=== PATIENT | female | born 1930 | race Caucasian/White ===

== ENCOUNTER 2017-08-23 11:39 | Inpatient (IN) | payer MEDICARE ==
[2017-08-23] MEDS ORDERED: Diltiazem 125 MG/25 ML ONE (12:02)
[2017-08-23] MEDS ORDERED: Nitroglycerin 2% Ointment 1 INCH/1 GM Packet ONE (12:02)
[2017-08-23 12:04] LABS: #Basophils 0.1 thou/uL (0.0-0.2); #Eosinphils 0.1 thou/uL (0.0-0.7); #Lymphocytes 1.6 thou/uL (1.20-3.40); #Monocytes 0.7 thou/uL (0.11-0.59); #Neutrophils 5.6 thou/uL (1.40-6.50); %Basophils 1.1 % (0.0-1.0); %Eosinophils 1.7 % (0.0-10.0); %Lymphocytes 19.4 % (21.0-51.0); %Monocytes 8.3 % (0.0-10.0); %Neutrophils 69.5 % (42.0-75.0); Hemoglobin 14.1 g/dL (12.0-16.0); Mean Corpuscular HGB CONC 32.7 g/dL (32.0-36.0); Mean Corpuscular Hemoglobin 28.5 pg (27.0-31.0); Mean Corpuscular Volume 87.3 fl (81.0-99.0); Mean Platelet Volume 9.1 fL (7.4-10.4); Platelet Count 203 thou/uL (130-400); RBC Distribution Width 13.7 % (11.5-14.5); Red Blood Cell (RBC) Count 4.93 mill/uL (4.20-5.40); White Blood Cell (WBC) Count 8.1 thou/uL (4.8-10.8)
[2017-08-23] MEDS ORDERED: Sodium Chloride 0.9% 100 ML ONE (12:07)
[2017-08-23 12:18] LABS: ALT (SGPT) 31 U/L (8-55); AST (SGOT) 34 U/L (5-34); Albumin 4.2 g/dL (3.4-4.8); Alkaline Phosphatase 109 U/L (40-150); Anion Gap 15 mmol/L (10-20); BUN (Urea Nitrogen) 23 mg/dL (9.8-20.1); Bilirubin, Total 0.8 mg/dL (0.2-1.2); CK (CPK) 92 U/L (29-168); Calc. Creatinine Clearance 0 mL/min (70-130); Calcium 9.9 mg/dL (7.8-10.44); Carbon Dioxide 27 mmol/L (23-31); Chloride 103 mmol/L (98-107); Estimated GFR-MDRD 41; Globulin 3.9 g/dL (2.4-3.5); Glucose 115 mg/dL (83-110); Lipase 25 U/L (8-78); Potassium 4.7 mmol/L (3.5-5.1); Protein, Total 8.1 g/dL (6.0-8.3); Sodium 140 mmol/L (136-145)
[2017-08-23 12:25] LABS: CKMB 2.7 ng/mL (0-6.6); Troponin I 0.046 ng/mL (< 0.028)
--- NOTE | 2017-08-23 12:45 | RAD ---
CHEST ONE VIEW: History: Chest pain since last week, intermittent. Comparison: None. FINDINGS: One view chest. There are sternotomy wires and mediastinal clips. Normal cardiac silhouette. The pulm onary vessels and hilum are normal. Costophrenic angles are clear. There is hyperinflation with chron ic changes. No consolidation or mass. No pneumothorax. There is diffuse bone demineralization. Chroni c changes of the proximal right humerus. There appears to be thickening of the left apical pleura, li julieth chronic. IMPRESSION: No acute cardiopulmonary process. POS: [facility]
[2017-08-23 15:16] LABS: Troponin I 0.035 ng/mL (< 0.028)
[2017-08-23 15:45] VITALS: BMI 25.4
[2017-08-23] MEDS ORDERED: Aspirin 81 mg Enteric Coated Tablet PO SCH (16:00)
[2017-08-23] MEDS ORDERED: Diltiazem HCl 125 MG, Admixture Fee 1 EACH in Sodium Chloride 0.9% 100 ML IVPB SCH ×3 (16:00→16:45)
[2017-08-23] MEDS ORDERED: Dextrose 5% in Water 1,000 ML IV PRN (16:27)
[2017-08-23] MEDS ORDERED: Dextrose 50% Abboject 50 ML SYRINGE IVP PRN (16:27)
[2017-08-23] MEDS ORDERED: Insulin Regular 300 UNITS/3 ML VIAL SC PRN ×2 (16:27)
[2017-08-23] MEDS ORDERED: Nitroglycerin 2% Ointment 1 INCH/1 GM Packet TOP SCH (18:00)
[2017-08-23 18:28] LABS: Troponin I 0.029 ng/mL (< 0.028)
[2017-08-23] MEDS ORDERED: Enoxaparin Sodium 60 MG/0.6 ML SYRINGE SC SCH (19:00)
[2017-08-23] MEDS: Carvedilol 6.25 MG TAB PO SCH (20:28)
[2017-08-23] MEDS: Zolpidem Tartrate 5 MG TAB PO SCH (20:28)
[2017-08-23] MEDS: Atorvastatin Calcium 40 MG TAB PO SCH (20:28)
--- NOTE | 2017-08-24 00:32 | CON ---
DATE OF CONSULTATION: 08/23/2017 PRIMARY THERAPY TECHNICIAN: Dean Hill MD REASON FOR CONSULTATION: Atrial fibrillation with rapid rate, chest pressure, and pulmonary congesti on. HISTORY OF PRESENT ILLNESS: Ms. Shah is a very pleasant 87-year-old woman. The patient states she has been having tightness in her chest now for a couple of weeks. It is worse when she exerts herse lf. She also feels progressively more short of breath and had more swelling of her lower extremities . She came here to the emergency room, she was found to be in atrial fibrillation with an increased ventricular response about 110 beats per minute. She has been hospitalized and is feeling better now . MEDICATIONS AT HOME: 1. Lisinopril/hydrochlorothiazide 20/25. 2. Aspirin. 3. Carvedilol 6.25 mg twice a day. 4. Atorvastatin 40 mg a day. 5. Paroxetine. She received nitroglycerin paste and Cardizem here. ALLERGIES: None known. PREVIOUS HISTORY: The patient underwent stress testing and subsequent coronary artery bypass graftin g in 2006. Dr. Villasenor did a bypass surgery, MCCAULEY to the LAD, vein graft to the ramus and circumflex. She also had a carotid endarterectomy with patch angioplasty. The patient has done well up until recently. REVIEW OF SYSTEMS: Constitutional: No significant weight gain or loss. Vision: No changes. Heari ng: No changes. Pulmonary: No cough or wheezing. Gastrointestinal: No nausea, vomiting, diarrhea . Skin: No rashes. Neurologic: No unilateral weakness or numbness. Psychiatric: No unusual depr ession or anxiety. Hematologic: No unusual bruising. Genitourinary: No burning with urination. PHYSICAL EXAMINATION: GENERAL: A pleasant elderly woman. She is alert and oriented and asymptomatic. VITAL SIGNS: Her blood pressure 166/77, pulse 86, it is irregular. HEENT: Sclerae nonicteric. Mouth mucous membranes moist. NECK: Supple. No lymphadenopathy. LUNGS: Clear. No wheezing, rales, or rhonchi. CARDIAC: Irregularly irregular. No murmur, rub, or gallop. ABDOMEN: Soft, nontender. EXTREMITIES: No clubbing, cyanosis, or edema. Palpable dorsalis pedis pulse on the right. Diminish ed dorsalis pedis pulse on the left. LABORATORY AND X-RAY FINDINGS: EKG atrial fibrillation, now with controlled ventricular response, pr eviously rate was fast at 110 beats per minute. Creatinine 1.24. Potassium is 4.7. BNP 497.8. ASSESSMENT: 1. Atrial fibrillation, newly diagnosed with a rapid ventricular response. 2. Previous bypass surgery. 3. Probably got some element of diastolic congestive heart failure. 4. Renal insufficiency, stage 3. PLAN: 1. Continue SHAAN inhibitors. 2. Continue carvedilol. 3. We will give her an extra dose of furosemide tomorrow morning early. She is probably somewhat vo lume overloaded. 4. Echocardiogram to be done. 5. Single dose of Lovenox to be done. 6. Dr. Hill will return tomorrow to decide whether to undergo stress testing versus repeat card iac catheterization.
[2017-08-24] MEDS ORDERED: Furosemide 20 MG/2 ML VIAL SLOW IVP SCH (06:00)
[2017-08-24] MEDS: Lisinopril 5 MG TAB PO SCH (08:01)
[2017-08-24] MEDS: PARoxetine 20 MG TAB PO SCH (08:01)
[2017-08-24] MEDS: metFORMIN 500 MG TAB PO SCH (08:01)
[2017-08-24] MEDS: Carvedilol 6.25 MG TAB PO SCH ×2 (08:02→21:46)
[2017-08-24 08:44] LABS: #Eosinphils 0.1 thou/uL (0.0-0.7); #Monocytes 0.8 thou/uL (0.11-0.59); #Neutrophils 5.9 thou/uL (1.40-6.50); %Basophils 0.5 % (0.0-1.0); %Eosinophils 1.3 % (0.0-10.0); %Lymphocytes 22.3 % (21.0-51.0); %Monocytes 9.3 % (0.0-10.0); %Neutrophils 66.6 % (42.0-75.0); Mean Corpuscular HGB CONC 32.6 g/dL (32.0-36.0); Mean Corpuscular Hemoglobin 29.2 pg (27.0-31.0); Mean Corpuscular Volume 89.6 fl (81.0-99.0); Mean Platelet Volume 8.4 fL (7.4-10.4); Platelet Count 190 thou/uL (130-400); RBC Distribution Width 13.2 % (11.5-14.5); Red Blood Cell (RBC) Count 4.46 mill/uL (4.20-5.40); White Blood Cell (WBC) Count 8.9 thou/uL (4.8-10.8)
[2017-08-24] MEDS ORDERED: Lisinopril/Hydrochlorothiazide 20/25 mg Tablet PO SCH (09:00)
[2017-08-24] MEDS ORDERED: Aspirin 325 MG TAB PO SCH (09:00)
[2017-08-24 09:03] LABS: Anion Gap 12 mmol/L (10-20); BUN (Urea Nitrogen) 29 mg/dL (9.8-20.1); Calc. Creatinine Clearance 33 mL/min (70-130); Calcium 9.4 mg/dL (7.8-10.44); Carbon Dioxide 26 mmol/L (23-31); Chloride 102 mmol/L (98-107); Estimated GFR-MDRD 38; Glucose 124 mg/dL (83-110); Potassium 4.1 mmol/L (3.5-5.1); Sodium 136 mmol/L (136-145)
--- NOTE | 2017-08-24 18:03 | PDOC.CTH ---
Cardiology Progress Note - Subjective Patient without complaint. Still in AFib and rate down to 50s earlier so gtt stopped. Rate still controlled. - Objective Vital Signs Temp Pulse Resp BP Pulse Ox 08/24/17 16:04 98.4 F 76 17 121/56 L 95 08/24/17 12:51 97.5 F L 83 16 97 08/23/17 08/24/17 08/25/17 06:59 06:59 06:59 Intake Total 960 Output Total 1000 Balance -40 - Physical Examination General/Neuro: alert & oriented x3, NAD Lungs: CTA Heart: other: (IRR) Abdomen: NT/ND - Telemetry Telemetry Rhythm: Afib - Labs Result Diagrams: 08/24/17 08:25 08/24/17 08:25 Troponin/CKMB CK-MB (CK-2) 2.7 ng/mL (0-6.6) 08/23/17 11:50 Troponin I 0.029 ng/mL (< 0.028) H 08/23/17 17:53 - Assessment/Plan 1. New-onset Afib with RVR - rate-controlled currently. Unknown AF duration. On Coreg and received Lovenox today. Discussed NOAC and [id number] score. She wants to speak with daughters first, but is leaning towards NOAC. May require MPI, but can do as outpatient. ECHO still pending. Possible discharge tomorrow. 2. Acute diastolic CHF - appears euvolemic now. ECHO tomorrow.
[2017-08-24] MEDS: Zolpidem Tartrate 5 MG TAB PO SCH (21:46)
[2017-08-24] MEDS: Atorvastatin Calcium 40 MG TAB PO SCH (21:46)
[2017-08-25 07:54] LABS: Anion Gap 13 mmol/L (10-20); BUN (Urea Nitrogen) 32 mg/dL (9.8-20.1); Calc. Creatinine Clearance 35 mL/min (70-130); Calcium 9.5 mg/dL (7.8-10.44); Carbon Dioxide 24 mmol/L (23-31); Chloride 102 mmol/L (98-107); Estimated GFR-MDRD 41; Glucose 102 mg/dL (83-110); Potassium 4.1 mmol/L (3.5-5.1); Sodium 135 mmol/L (136-145)
[2017-08-25 07:56] LABS: #Basophils 0.1 thou/uL (0.0-0.2); #Eosinphils 0.1 thou/uL (0.0-0.7); #Lymphocytes 1.3 thou/uL (1.20-3.40); #Monocytes 0.7 thou/uL (0.11-0.59); #Neutrophils 4.2 thou/uL (1.40-6.50); %Basophils 0.9 % (0.0-1.0); %Lymphocytes 20.1 % (21.0-51.0); %Monocytes 10.6 % (0.0-10.0); %Neutrophils 66.3 % (42.0-75.0); Hemoglobin 13.3 g/dL (12.0-16.0); Mean Corpuscular HGB CONC 32.6 g/dL (32.0-36.0); Mean Corpuscular Hemoglobin 29.4 pg (27.0-31.0); Mean Corpuscular Volume 90.2 fl (81.0-99.0); Mean Platelet Volume 9.1 fL (7.4-10.4); Platelet Count 196 thou/uL (130-400); RBC Distribution Width 12.9 % (11.5-14.5); Red Blood Cell (RBC) Count 4.54 mill/uL (4.20-5.40); White Blood Cell (WBC) Count 6.4 thou/uL (4.8-10.8)
--- NOTE | 2017-08-25 08:28 | PRG ---
DATE OF SERVICE: 08/25/1017 The patient had a good night. Her daughter is at bedside. She denies any problems. PHYSICAL EXAMINATION: GENERAL: She is awake, alert, and oriented to person, place and time. VITAL SIGNS: Her blood pressure is 127/60, pulse 80, respiration rate 18. She is afebrile. NECK: Supple. No JVD or carotid bruit. Carotids had good upstroke, no thyromegaly. COR: Irregularly irregular with variable first and second heart sounds. No S3 or S4. CHEST: Symmetrical. Clear to auscultation and percussion. ABDOMEN: Soft, nontender, normal bowel sounds. No bruit or organomegaly. EXTREMITIES: No edema or cyanosis. Pedal pulses. SKIN: There is no evidence of ulcers, lesion or rash. NEUROLOGIC: She is awake, alert, and oriented to person, place, and time. ASSESSMENT: 1. Atrial fibrillation with rapid ventricular response. 2. Anxiety disorder. 3. Hypertension. 4. Acute diastolic congestive heart failure, improved. PLAN: We are waiting for the echocardiogram and hopefully the patient will be able to go home in the next 24 hours. The patient verbalized understanding. All questions answered to her satisfaction.
[2017-08-25] MEDS: metFORMIN 500 MG TAB PO SCH (09:07)
[2017-08-25] MEDS: Lisinopril 5 MG TAB PO SCH (09:08)
[2017-08-25] MEDS: Apixaban 5 MG TAB PO SCH ×2 (09:08→19:19)
[2017-08-25] MEDS: Carvedilol 6.25 MG TAB PO SCH (09:08)
[2017-08-25] MEDS: PARoxetine 20 MG TAB PO SCH (09:08)
--- NOTE | 2017-08-25 11:52 | PQF ---
DATE: 08-25-17 ATTN: DR. CAMILLE MUHAMMAD Please exercise your independent, professional judgment in responding to the clarification form. Clinical indicators are provided on the bottom of this form for your review Please check appropriate box(s): [ ] Demand Ischemia [ ] AMI Type II [ ] Other diagnosis [ x ] Unable to determine In addition, please specify: Present on Admission (POA): [ x ] Yes [ ] No [ ] Unable to determine CLINICAL INDICATORS - SIGNS / SYMPTOMS / LABS TROPONIN: 08-23-17: 0.046, 0.[address] CURRY 08-23-17: HX OF STRESS TESTING AND SUBSEQUENT CORONARY ARTERY BYPASS GRAFTING IN 2006. DR. PARTIDA DID A BYPASS SURGERY, MCCAULEY TO LAD, VEIN GRAFT TO THE RAMUS AND CIRCUMFLEX. SHE ALSO HAD A CAROTID ENDARTERECTOMY WITH PATCH ANGIOPLASTY. RISKS: CONSULT NOTE DR. CURRY 08-23-17: HX OF STRESS TESTING AND SUBSEQUENT CORONARY ARTERY BYPASS GRAFTING IN 2006. DR. PARTIDA DID A BYPASS SURGERY, MCCAULEY TO LAD, VEIN GRAFT TO THE RAMUS AND CIRCUMFLEX. SHE ALSO HAD A CAROTID ENDARTERECTOMY WITH PATCH ANGIOPLASTY. (ER) HX OF HLD, HTN, CABG TREATMENTS: CONSULT DR. PARTIDA 08-23-17: SHE RECEIVED NITROGLYCERIN AND CARDIZEM HERE, ECHO TO BE DONE, LOVENOX CONTINUOUS CARDIAC MONITORING (This form is maintained as a part of the permanent medical record) 2014 [employer], [employer]. All Rights Reserved CRISTOFER [email or web address] Office: [phone] [facility]
--- NOTE | 2017-08-25 12:13 | PQF ---
DATE: 08-25-17 ATTN: DR. CAMILLE MUHAMMAD Please exercise your independent, professional judgment in responding to the clarification form. Clinical indicators are provided on the bottom of this form for your review Please check appropriate box(s): [ ] Acute Renal Failure (ARF) / Acute Kidney Injury (ALFRED) [ ] Acute on Chronic Renal Failure please specify Stage of CKD (see below) [ x ] CKD without ARF/ALFRED please specify Stage of CKD__3 [ ] Other diagnosis [ ] Unable to determine In addition, please specify: Present on Admission (POA): [ x ] Yes [ ] No [ ] Unable to determine National Kidney Foundation Guidelines for CKD Staging Stage I Kidney damage with normal or increased GFR GFR > 90 Stage IIKidney damage with mildly decreased GFR GFR 60-89 Stage III Kidney damage with moderately decreased GFR GFR 30-59 Stage IVKidney damage with severely decreased GFR GFR 16-29 Stage VKidney failure GFR<15 ESRDEnd Stage Renal Disease On dialysis Acute Renal Failure/Acute Kidney Failure defined as: Increases in SCr by (>) 0.3 mg/dl within 48 hours OR- Increases in SCr by (>) 1.5 times baseline, known or presumed to have occurred within the prior 7 days OR- Urine volume < 0.5 ml/kg/hour for 6 hours (KDIGO supplement 2012 for RIFLE/MARIA LUZ criteria) For continuity of documentation, please document condition throughout progress notes and discharge summary. Thank You. CLINICAL INDICATORS - SIGNS / SYMPTOMS / LABS GFR: 08-23-17: 41 08-24-17 38 08-25-17: 41 CREATININE: 08-23-17: 1.24 08-24-17: 1.33 08-25-17: 1.23 BUN: 08-23-17: 23 08-24-17: 29 08-25-17: [address] CURRY 08-23-17: ASSESSMENT: RENAL INSUFFICIENCY, STAGE 3 RISK FACTORS: CONSULT DR. CURRY 08-23-17: ASSESSMENT: RENAL INSUFFICIENCY, STAGE 3, CONTINUE SHAAN INHIBITORS TREATMENTS: LABS MONITORING (This form is maintained as a part of the permanent medical record) 2014 [employer], [employer]. All Rights Reserved CRISTOFER [email or web address] Office: [phone] [facility]
--- NOTE | 2017-08-25 15:16 | PRG ---
DATE OF SERVICE: 08/25/2017 SUBJECTIVE: Ms. Shah is doing well. She continues to be in atrial fibrillation, but appears to be rate controlled. CURRENT MEDICATIONS: Include Eliquis 5 mg b.i.d., aspirin 81 q.a.m., atorvastatin and carvedilol 6.2 5 b.i.d. OBJECTIVE: VITAL SIGNS: Blood pressure 126/70, pulse 80, temperature 97.9. LUNGS: Clear to auscultation. CARDIAC: Irregularly irregular. ABDOMEN: Soft, nontender, nondistended. EXTREMITIES: No edema. IMPRESSION: Atrial fibrillation. RECOMMENDATIONS: Ms. Shah appears to be rate controlled. She is tolerating Eliquis in addition to Coreg. From my standpoint, it would be okay for discharge with close outpatient followup. Othermohits e, I have no recommendations.
[2017-08-25 16:05] VITALS: BP 126/79; TEMP 98.5
--- NOTE | 2017-08-26 14:23 | SS ---
SHORT STAY SUMMARY DATE OF INITIAL STAY IN THE HOSPITAL: 08/23/2017 DATE OF DISCHARGE: 08/25/2017 She came to the ER where Dr. Elizabeth saw her and did an H and P/consultation and also serves as the hi story and physical. Her chief complaint was feeling tired for several days and short of breath. He found her to be in atrial fibrillation with rapid ventricular response. She had chest pressure and p ulmonary congestion. He elected to put her on telemetry and continue her ACEs and carvedilol and gav e her some Lasix IV. Echocardiogram was performed. Lovenox given and Dr. Hill was assigned to take care of her thereafter. We were called in on the previous day to come and see her and on 2017, she was alert, no complaints, no chest pain. Vital signs are stable. Chest clear. Blood pres sure trend down good. She was still on atrial fibrillation with rapid ventricular response. Her tro ponins were slightly increased, but this was felt to be due to demand ischemia. The PA saw her on for Cardiology, no complaints, still in atrial fibrillation with the rate was down to the 50 s, so the Cardizem drip was stopped at this point. She remained in the hospital, rate controlled. T heurbano decided they did not want to use anticoagulation. We talked about coagulation therapy because lola kam is developing some dementia. Dr. Hill saw her on the day of discharge on 08/25/2017. She was tolerating the Eliquis without problems, so we will discharge her on Eliquis 5 b.i.d. and Coreg. Lola kam will follow up with Dr. Hill in his office. DIAGNOSES AT THE TIME OF DISCHARGE: Atrial fibrillation with rapid ventricular response, new onset. She also had acute diastolic congestive heart failure with secondary dyspnea. She has mild dementia and mild renal insufficiency stage 3. The time required to review the chart, examine the patient, day camp counselor the daughter and patient, answeri ng all their questions, reconcile all her medication then prepared the chart for discharge including dictation was 35 minutes. She is discharged in stable condition and will follow up with Dr. Gunter in 1 week. Prescriptions written that day were for the Eliquis 5 mg one b.i.d. and she will continue o n her Coreg at 6.25 mg b.i.d. as well.
--- NOTE | 2017-09-16 12:08 | EKG ---
Test Reason : Blood Pressure : / mmHG Vent. Rate : 110 BPM Atrial Rate : 119 BPM P-R Int : 000 ms QRS Dur : 078 ms QT Int : 312 ms P-R-T Axes : 000 066 154 degrees QTc Int : 422 ms Atrial fibrillation with rapid ventricular response Abnormal QRS-T angle, consider primary T wave abnormality Abnormal ECG Confirmed by JUNIOR BONDS ([id number]), book or script editor FREDERICK BYNUM ([id number]) on 09/16/2017 12:07:01 PM Referred By: Confirmed By:JUNIOR BONDS
--- NOTE | 2017-10-24 07:50 | DIS ---
SHORT STAY SUMMARY DATE OF INITIAL STAY IN THE HOSPITAL: 08/23/2017 DATE OF DISCHARGE: 08/25/2017 She came to the ER where Dr. Elizabeth saw her and did an H and P/consultation and also serves as the history and physical. Her chief complaint was feeling tired for several days and short of breath. He found her to be in atrial fibrillation with rapid ventricular response. She had chest pressure and pulmonary congestion. He elected to put her on telemetry and continue her ACEs and carvedilol and gave her some Lasix IV. Lovenox given and Dr. Hill was assigned to take care of her thereafter. We were called in on the previous day to come and see her and on 08/24/2017, she was alert, no complaints, no chest pain. Vital signs are stable. Chest clear. Blood pressure trend down good. She was still on atrial fibrillation with rapid ventricular response. Her troponins were slightly increased, but this was felt to be due to demand ischemia. The PA saw her on 08/24/2017 for Cardiology, no complaints, still in atrial fibrillation with the rate was down to the 50s, so the Cardizem drip was stopped at this point. She remained in the hospital, rate controlled. They decided they did not want to use anticoagulation. We talked about coagulation therapy because she is developing some dementia. Dr. Hill saw her on the day of discharge on 08/25/2017. She was tolerating the Eliquis without problems , so we will discharge her on Eliquis 5 b.i.d. and Coreg. She will follow up with Dr. Hill in his office. DIAGNOSES AT THE TIME OF DISCHARGE: Atrial fibrillation with rapid ventricular response, new onset. She also had acute diastolic congestive heart failure with secondary dyspnea. She has mild dementia and mild renal insufficiency stage 3. The time required to review the chart, examine the patient, dormitory counselor the daughter and patient, answering all their questions, reconcile all her medication then prepared the chart for discharge including dictation was 35 minutes. She is discharged in stable condition and will follow up with Dr. Gunter in 1 week. Prescriptions written that day were for the Eliquis 5 mg one b.i.d. and she will continue on her Coreg at 6.25 mg b.i.d. as well. MTDD
== END 2017-08-25 19:55 | disposition home or self-care (01) | DRG 308 ==
LOC: SCSER 11:39 → ERS 11:39 → 2NO 12:30 → OBSVTOIN 08-24 12:30
PROVIDERS: ADMIT Specialist; ATTEND Specialist
DX: I48.91 Unspecified atrial fibrillation (principal); I50.21 Acute systolic (congestive) heart failure; I24.8 Other forms of acute ischemic heart disease; N18.3 Chronic kidney disease, stage 3 (moderate); I13.0 Hypertensive heart and chronic kidney disease with heart failure and stage 1 through stage 4 chronic kidney disease, or unspecified chronic kidney disease; Z95.1 Presence of aortocoronary bypass graft; F41.9 Anxiety disorder, unspecified; E78.5 Hyperlipidemia, unspecified
CPT/HCPCS: 36415; 36416; 71045; 80048; 80053; 82553; 83690; 83880; 84484; 85025; 93005; 96365; 96366; J1650; J1940; J7050

== ENCOUNTER 2017-09-26 16:36 | Inpatient (IN) | payer MEDICARE ==
[2017-09-26 17:03] LABS: #Basophils 0.1 thou/uL (0.0-0.2); #Eosinphils 0.3 thou/uL (0.0-0.7); #Lymphocytes 1.5 thou/uL (1.20-3.40); #Monocytes 0.6 thou/uL (0.11-0.59); %Basophils 0.9 % (0.0-1.0); %Eosinophils 3.1 % (0.0-10.0); Mean Corpuscular HGB CONC 33.4 g/dL (32.0-36.0); Mean Corpuscular Hemoglobin 29.4 pg (27.0-31.0); Mean Corpuscular Volume 88.1 fl (81.0-99.0); Mean Platelet Volume 8.2 fL (7.4-10.4); Platelet Count 202 thou/uL (130-400); RBC Distribution Width 12.7 % (11.5-14.5); White Blood Cell (WBC) Count 8.4 thou/uL (4.8-10.8)
[2017-09-26 17:23] LABS: ALT (SGPT) 18 U/L (8-55); AST (SGOT) 22 U/L (5-34); Albumin 4.2 g/dL (3.4-4.8); Alkaline Phosphatase 78 U/L (40-150); Anion Gap 10 mmol/L (10-20); BUN (Urea Nitrogen) 57 mg/dL (9.8-20.1); Bilirubin, Total 0.6 mg/dL (0.2-1.2); CK (CPK) 87 U/L (29-168); Calc. Creatinine Clearance 0 mL/min (70-130); Calcium 9.8 mg/dL (7.8-10.44); Carbon Dioxide 32 mmol/L (23-31); Chloride 99 mmol/L (98-107); Estimated GFR-MDRD 33; Globulin 3.4 g/dL (2.4-3.5); Glucose 107 mg/dL (83-110); Potassium 3.6 mmol/L (3.5-5.1); Protein, Total 7.6 g/dL (6.0-8.3); Sodium 137 mmol/L (136-145)
[2017-09-26 17:27] LABS: CKMB 1.4 ng/mL (0-6.6); Troponin I Less than 0.010 ng/mL (< 0.028)
--- NOTE | 2017-09-26 18:13 | RAD ---
CHEST ONE VIEW: HISTORY: Chest pain. COMPARISON: Chest radiograph from 08/23/2017. FINDINGS: Heart size is mildly enlarged, similar. Calcified granulomas in the left lung. No focal air space c onsolidation, pneumothorax, or effusion. There are biapical pleural calcifications. Severe right and moderate left degenerative changes of th e glenohumeral joints. IMPRESSION: 1. Cardiomegaly and mild chronic changes. 2. No acute intrathoracic abnormality. POS: [facility]
[2017-09-26] MEDS ORDERED: Acetaminophen 325 MG TAB ONE (19:12)
[2017-09-26] MEDS ORDERED: Ondansetron ODT 4 MG TAB SL PRN (19:58)
[2017-09-26] MEDS ORDERED: Acetaminophen 325 MG TAB PO PRN ×2 (19:58→20:51)
[2017-09-26] MEDS ORDERED: Ondansetron HCl/PF 4 MG/2 ML Vial IVP PRN (19:58)
[2017-09-26] MEDS ORDERED: ALPRAZolam 1 MG TAB PO PRN (20:49)
[2017-09-26] MEDS ORDERED: Ondansetron ODT 4 MG TAB PO PRN (20:51)
[2017-09-26] MEDS ORDERED: Ondansetron HCl/PF 4 MG/2 ML Vial SLOW IVP PRN (20:51)
[2017-09-26] MEDS ORDERED: Nitroglycerin 0.4 MG TAB (25 Tab Bottle) SL PRN (20:52)
[2017-09-26] MEDS ORDERED: cloNIDine 0.1 MG TAB PO PRN (20:52)
[2017-09-26] MEDS ORDERED: Carvedilol 6.25 MG TAB PO SCH (21:00)
[2017-09-26] MEDS: Apixaban 5 MG TAB PO SCH (21:01)
[2017-09-26] MEDS: Carvedilol 6.25 MG TAB PO SCH (21:01)
[2017-09-26] MEDS: PARoxetine 20 MG TAB PO SCH (21:02)
[2017-09-26] MEDS: Atorvastatin Calcium 40 MG TAB PO SCH (21:02)
[2017-09-26] MEDS: Zolpidem Tartrate 5 MG TAB PO SCH (21:04)
[2017-09-26 21:08] LABS: Troponin I Less than 0.010 ng/mL (< 0.028)
[2017-09-26 21:31] VITALS: BMI 27.1
[2017-09-26 23:28] LABS: Troponin I 0.013 ng/mL (< 0.028)
[2017-09-27] MEDS ORDERED: metFORMIN 500 MG TAB PO SCH (08:00)
[2017-09-27] MEDS: Apixaban 5 MG TAB PO SCH (09:05)
[2017-09-27] MEDS: Furosemide 20 MG TAB PO SCH (09:05)
[2017-09-27] MEDS: Potassium Chloride 10 MEQ TAB PO SCH (09:06)
[2017-09-27] MEDS ORDERED: Communication Order-Pharmacy FS SCH (09:15)
[2017-09-27] MEDS: Carvedilol 6.25 MG TAB PO SCH ×2 (09:23→21:50)
[2017-09-27] MEDS: Lisinopril/Hydrochlorothiazide 20/25 mg Tablet PO SCH (09:29)
[2017-09-27] MEDS ORDERED: Dextrose 50% Abboject 50 ML SYRINGE IVP PRN (09:30)
[2017-09-27] MEDS ORDERED: Dextrose 5% in Water 1,000 ML IV PRN (09:30)
[2017-09-27] MEDS ORDERED: Insulin Regular 300 UNITS/3 ML VIAL SC PRN ×2 (09:30)
--- NOTE | 2017-09-27 10:17 | CON ---
DATE OF CONSULTATION: 09/27/2017 REASON FOR CONSULTATION: Chest pain, nausea, vomiting, and a recent abnormal stress study. HISTORY OF PRESENT ILLNESS: Ms. Shah is a very pleasant 87-year-old woman with a past history of a trial fibrillation, has been in the hospital over the last several months for atrial fibrillation wit h RVR. She was rate controlled. She underwent a noninvasive stress study recently and was found to have ischemia along the anterior and septal wall. She recently presented with acute onset chest pain lasting 2 hours. She had associated nausea, vomit ing, and shortness of breath. No other ameliorating, exacerbating, or precipitating factors present. PAST MEDICAL HISTORY: Hyperlipidemia, hypertension, diabetes mellitus, atrial fibrillation, systolic heart failure. CABG x3 with MCCAULEY to the LAD, vein graft to the ramus and circumflex artery. PAST SURGICAL HISTORY: Cholecystectomy. ALLERGIES: None. CURRENT MEDICATIONS: Alprazolam, aspirin, paroxetine, metformin, Eliquis, Xanax, lisinopril/hydrochl orothiazide, Lipitor, carvedilol. REVIEW OF SYSTEMS: Ten-point review of systems is reviewed and is as above, otherwise negative. PHYSICAL EXAMINATION: GENERAL: Patient is a pleasant female, who is in no acute distress. The patient appears her stated age. VITAL SIGNS: Blood pressure 117/52, pulse 81, temperature 98. NEUROLOGIC: The patient is alert and oriented times 3 with no focal neurologic deficits. HEENT: Sclerae without icterus. Mouth has moist mucous membranes with normal pallor. NECK: No JVD. Carotid upstroke brisk. No bruits bilaterally. LUNGS: Clear to auscultation with unlabored respirations. BACK: No scoliosis or kyphosis. HEART: Irregularly irregular. ABDOMEN: Soft, nontender, nondistended. No peritoneal signs present. No hepatosplenomegaly. No ab normal striae. EXTREMITIES: 2+ femoral and 2+ dorsalis pedis pulses. No cyanosis, clubbing, or edema. SKIN: No gross abnormalities. PERTINENT LABORATORY DATA: Creatinine 1.5 with a GFR of 33, CO2 of 32. BNP of 432. IMPRESSION: 1. Acute onset chest pain. 2. Abnormal stress test. 3. Coronary artery disease. 4. Status post bypass surgery. 5. Atrial fibrillation. RECOMMENDATIONS: Given that she is currently on Eliquis, we will have to defer angiography for the [facility] er 2 days. At this point, we would treat medically. We will add Jenniferx tomorrow. Unfortunately, s he will not be approachable from a radial standpoint given MCCAULEY. Her troponin has been negative. We will discuss with patient on whether she would like to proceed with angiography in the next 2 days o r treat medically and proceed as an outpatient. Based on the findings of her angio, we will not be a ble to proceed with cardioversion. I discussed the procedure in full detail with Ms. Shah. Risks included but not limited to the following. , stroke, ND, need for emergency surgery, loss of li mb, bleeding, and infection, as well as a reaction to the dye causing kidney failure and needing long -term dialysis. I also discussed the risks of PCI to include all of the above including coronary dis section and perforation in addition to acute stent thrombosis and restenosis. All questions about th e procedure were answered. Given the above, the patient agreed to proceed with coronary angiography a nd possible PCI.
--- NOTE | 2017-09-27 10:41 | HP ---
REASON FOR ADMISSION: Chest pain. HISTORY OF PRESENT ILLNESS: This is a pleasant 87-year-old female with a history of multiple medical problems to include hypertension, hyperlipidemia, and coronary artery bypass roughly 10 years ago. She was seen by Dr. Hill roughly 2 weeks ago where she had abnormal stress test and at that time , it was recommended that she needed a cardiac catheterization. Unfortunately, the patient woke up e rebecca yesterday morning with retrosternal chest tightness associated with shortness of breath, diaphor esis and nausea and vomiting. This lasted roughly 2 hours. Her family was called to the scene and davide lisa did contact Dr. Hill's office and he did advise her to come to the hospital. Now, she is pa in free and appears to be hemodynamically stable, in no acute distress. She denies any chest, arm or back pain. She also denies any syncopal or near syncopal episode. She is admitted for further eval uation and treatment. PAST MEDICAL HISTORY: 1. As above plus depression. 2. Anxiety. 3. Insomnia. 4. History of pancreatitis. PAST SURGICAL HISTORY: 1. History of coronary artery disease with bypass in the past. 2. Cholecystectomy. 3. Hysterectomy. 4. Breast biopsy. ALLERGIES: None. MEDICATIONS: 1. Lasix 40 mg every day. 2. Xanax 0.5 mg 2 tablets 3 times a day. 3. Paroxetine 40 mg daily. 4. Eliquis 5 mg every day. 5. Ambien 10 mg b.i.d. 6. Coreg 6.25 mg b.i.d. 7. Metformin 500 mg b.i.d. 8. Potassium 10 mEq daily. 9. Lipitor/hydrochlorothiazide 20/12.5 mg every day. SOCIAL HISTORY: She does not smoke or drink alcohol. FAMILY HISTORY: Noncontributory. REVIEW OF SYSTEMS: GENERAL: Admits to weakness, fatigue, no fever or chills. HEENT: No diplopia, amaurosis fugax, denies sore throat or hoarseness. CARDIOVASCULAR: See history of present illness. PULMONARY: No PE, cough, hemoptysis. GASTROINTESTINAL: No GI bleed, constipation, diarrhea. GENITOURINARY: No dysuria, nocturia, oliguria, polyuria. ENDOCRINE: No polyphagia, polydipsia or heat or cold intolerance. MUSCULOSKELETAL: Admits to arthralgia, no myopathy. NEUROLOGIC: No history of TIA or seizure. All systems are negative. PHYSICAL EXAMINATION: GENERAL: Pleasant female who appeared in no acute distress. She is awake, alert, and oriented to pe rson, place and time. VITAL SIGNS: Vital signs are stable. NECK: Supple. No increased JVP or carotid bruit. Carotid had good upstroke with no thyromegaly. COR: Irregularly irregular with variable first and second heart sounds. No murmur, no S3, S4. CHEST: Symmetrical. Clear to auscultation and percussion. ABDOMEN: Soft, nontender with normoactive bowel sounds. There is no bruit or organomegaly. EXTREMITIES: No edema or cyanosis. She had palpable pedal pulses. SKIN: There is no evidence of ulcers, lesion or rash. NEURO: She is awake, alert, and oriented to person, place, and time. LABORATORY DATA: BUN 57, creatinine 1.50. Her BNP is 432.7. Her cardiac enzymes are normal. Her C BC is normal. Her EKG showed atrial fibrillation. ASSESSMENT: 1. Acute coronary syndrome. 2. Known coronary artery disease with bypass in the past. 3. Hypertension 4. Hyperlipidemia. 5. Mild renal insufficiency. 6. Atrial fibrillation. 7. Diabetes. 8. Multiple medical problems. PLAN: 1. The patient will be kept n.p.o. until Dr. Hill has cleared her. 2. We will hold Eliquis and metformin. 3. We will be getting blood sugar checks and use low dose sliding scale insulin per protocol. 4. We will check a CBC and CMP in the morning. 5. We will start Lovenox. 6. We will place the patient inpatient as she does meet criteria. All questions answered to the patient's and family's satisfaction.
[2017-09-27] MEDS: Sodium Chloride 0.9% 1,000 ML IV SCH ×2 (11:03→14:53)
[2017-09-27] MEDS: Atorvastatin Calcium 40 MG TAB PO SCH (21:49)
[2017-09-27] MEDS: PARoxetine 20 MG TAB PO SCH (21:50)
[2017-09-27] MEDS: Zolpidem Tartrate 5 MG TAB PO SCH (21:50)
[2017-09-28] MEDS: Sodium Chloride 0.9% 1,000 ML IV SCH ×4 (00:47→19:07)
[2017-09-28 05:52] LABS: #Basophils 0.1 thou/uL (0.0-0.2); #Eosinphils 0.3 thou/uL (0.0-0.7); #Lymphocytes 1.5 thou/uL (1.20-3.40); #Monocytes 0.6 thou/uL (0.11-0.59); #Neutrophils 4.3 thou/uL (1.40-6.50); %Basophils 1.2 % (0.0-1.0); %Eosinophils 3.8 % (0.0-10.0); %Lymphocytes 22.2 % (21.0-51.0); %Monocytes 8.9 % (0.0-10.0); %Neutrophils 63.8 % (42.0-75.0); Hemoglobin 11.1 g/dL (12.0-16.0); Mean Corpuscular HGB CONC 32.8 g/dL (32.0-36.0); Mean Corpuscular Hemoglobin 29.1 pg (27.0-31.0); Mean Corpuscular Volume 88.7 fl (81.0-99.0); Mean Platelet Volume 8.3 fL (7.4-10.4); Platelet Count 176 thou/uL (130-400); RBC Distribution Width 12.7 % (11.5-14.5); White Blood Cell (WBC) Count 6.7 thou/uL (4.8-10.8)
[2017-09-28] MEDS: Carvedilol 6.25 MG TAB PO SCH ×2 (06:11→20:36)
[2017-09-28 06:12] LABS: ALT (SGPT) 15 U/L (8-55); AST (SGOT) 19 U/L (5-34); Albumin 3.5 g/dL (3.4-4.8); Alkaline Phosphatase 64 U/L (40-150); Anion Gap 10 mmol/L (10-20); BUN (Urea Nitrogen) 41 mg/dL (9.8-20.1); Bilirubin, Total 0.6 mg/dL (0.2-1.2); Calc. Creatinine Clearance 36 mL/min (70-130); Calcium 8.6 mg/dL (7.8-10.44); Carbon Dioxide 27 mmol/L (23-31); Chloride 106 mmol/L (98-107); Estimated GFR-MDRD 43; Globulin 2.7 g/dL (2.4-3.5); Glucose 97 mg/dL (83-110); Protein, Total 6.2 g/dL (6.0-8.3)
[2017-09-28] MEDS: Lisinopril/Hydrochlorothiazide 20/25 mg Tablet PO SCH (06:12)
[2017-09-28] MEDS: Potassium Chloride 10 MEQ TAB PO SCH (06:12)
[2017-09-28 06:14] LABS: Sodium 139 mmol/L (136-145)
[2017-09-28] MEDS ORDERED: Lidocaine 1% (PF) 30 ML VIAL ONE (06:28)
[2017-09-28] MEDS ORDERED: Heparin 10,000 UNITS/1 ML VIAL ONE (07:27)
[2017-09-28] MEDS ORDERED: Clopidogrel Bisulfate 300 MG TAB ONE ×2 (07:28→07:29)
[2017-09-28] MEDS ORDERED: Adenosine 6 MG/2 ML VIAL ONE (07:33)
[2017-09-28] MEDS ORDERED: Verapamil 5 MG/2 ML VIAL ONE (07:33)
[2017-09-28] MEDS ORDERED: Nitroglycerin 100MG/250ML BOT 250 ML ONE (07:33)
[2017-09-28] MEDS ORDERED: Iopamidol 370 76% 50 ML VIAL FS ONE (11:26)
[2017-09-28] MEDS ORDERED: Iopamidol 370 76% 100 ML VIAL ONE (11:26)
[2017-09-28] MEDS ORDERED: Clopidogrel Bisulfate 75 MG TAB PO SCH ×2 (12:28→12:45)
[2017-09-28] MEDS ORDERED: Nitroglycerin 0.4 MG TAB (25 Tab Bottle) SL PRN (12:28)
[2017-09-28] MEDS: Furosemide 20 MG TAB PO SCH (12:59)
--- NOTE | 2017-09-28 14:42 | PQF ---
CLINICAL DOCUMENTATION IMPROVEMENT CLARIFICATION FORM: ICD-10 Updated PLEASE DO AN ADDENDUM TO THE PROGRESS NOTE WITH ANY DOCUMENTATION UPDATES OR ADDITIONS AND CARRY THROUGH TO DC SUMMARY. THANK YOU. DATE: 09/28/17 ATTN: Dr. Gunter Please exercise your independent, professional judgment in responding to the clarification form. Clinical indicators are provided on the bottom of this form for your review Please check appropriate box(s): [ ] Acute Renal Failure (ARF) / Acute Kidney Injury (ALFRED) (Please specify associated condition, if applicable) [ ] Other Etiology or underlying conditions related to the diagnosis of ARF/ ALFRED: [ ] Acute on Chronic Renal Failure please specify Stage of CKD (see below) [ x ] CKD without ARF/ALFRED please specify Stage of CKD lll____ [ ] Other diagnosis [ ] Unable to determine In addition, please specify: Present on Admission (POA): [ ] Yes [ ] No [ ] Unable to determine National Kidney Foundation Guidelines for CKD Staging Stage I Kidney damage with normal or increased GFR GFR > 90 Stage II Kidney damage with mildly decreased GFR GFR 60-89 Stage III Kidney damage with moderately decreased GFR GFR 30-59 Stage IV Kidney damage with severely decreased GFR GFR 16-29 Stage V Kidney failure GFR<15 ESRD End Stage Renal Disease On dialysis Acute Renal Failure/Acute Kidney Failure defined as: Increases in SCr by (>) 0.3 mg/dl within 48 hours OR- Increases in SCr by (>) 1.5 times baseline, known or presumed to have occurred within the prior 7 days OR- Urine volume < 0.5 ml/kg/hour for 6 hours (KDIGO supplement 2012 for RIFLE/MARIA LUZ criteria) For continuity of documentation, please document condition throughout progress notes and discharge summary. Thank You. CLINICAL INDICATORS - SIGNS / SYMPTOMS / LABS H&P: MILD RENAL INSUFFICIENCY LABS: CREATININE 09/26 1.50 ESTIMATED GFR 33 CREATININE 09/28 1.19 GFR 43 RISKS: H&P: MEDICATIONS: LASIX. ACUTE CORONARY SYNDROME. KNOWN CAD W/ BYPASS IN THE PAST. HTN, MILD RENAL INSUFFICIENCY. A FIB. DM. TREATMENT: ORDER FOR LAB: CMP 09/26, 09/28, 09/29 CPOE 09/28: NS IV 100MLS/ HR Thank you, Mariana (This form is maintained as a part of the permanent medical record) 2015 [employer], [employer]. All Rights Reserved Mariana Peguero RN, BSN [email or web address] Office: [phone] [facility]
--- NOTE | 2017-09-28 20:27 | EKG ---
Test Reason : POST STENT Blood Pressure : / mmHG Vent. Rate : 072 BPM Atrial Rate : 075 BPM P-R Int : 000 ms QRS Dur : 086 ms QT Int : 440 ms P-R-T Axes : 000 075 -50 degrees QTc Int : 481 ms Atrial fibrillation T wave abnormality, consider inferior ischemia or digitalis effect Prolonged QT Abnormal ECG When compared with ECG of 26-SEP-2017 16:42, (Unconfirmed) Nonspecific T wave abnormality has replaced inverted T waves in Lateral leads Confirmed by GAIL GOMEZ (2) on 09/28/2017 8:26:56 PM Referred By: MARGARET Confirmed By:GAIL GOMEZ
[2017-09-28] MEDS: Atorvastatin Calcium 40 MG TAB PO SCH (20:36)
[2017-09-28] MEDS: PARoxetine 20 MG TAB PO SCH (20:36)
[2017-09-28] MEDS: Zolpidem Tartrate 5 MG TAB PO SCH (20:37)
[2017-09-29 05:28] LABS: #Basophils 0.1 thou/uL (0.0-0.2); #Eosinphils 0.2 thou/uL (0.0-0.7); #Lymphocytes 1.3 thou/uL (1.20-3.40); #Monocytes 0.6 thou/uL (0.11-0.59); #Neutrophils 3.7 thou/uL (1.40-6.50); %Basophils 0.9 % (0.0-1.0); %Eosinophils 4.2 % (0.0-10.0); %Lymphocytes 21.9 % (21.0-51.0); %Monocytes 10.2 % (0.0-10.0); %Neutrophils 62.8 % (42.0-75.0); Hemoglobin 10.8 g/dL (12.0-16.0); Mean Corpuscular HGB CONC 32.4 g/dL (32.0-36.0); Mean Corpuscular Volume 89.6 fl (81.0-99.0); Mean Platelet Volume 8.4 fL (7.4-10.4); Platelet Count 157 thou/uL (130-400); Red Blood Cell (RBC) Count 3.72 mill/uL (4.20-5.40); White Blood Cell (WBC) Count 5.8 thou/uL (4.8-10.8)
[2017-09-29 05:45] LABS: ALT (SGPT) 27 U/L (8-55); AST (SGOT) 27 U/L (5-34); Albumin 3.4 g/dL (3.4-4.8); Alkaline Phosphatase 65 U/L (40-150); Anion Gap 9 mmol/L (10-20); BUN (Urea Nitrogen) 26 mg/dL (9.8-20.1); Bilirubin, Total 0.7 mg/dL (0.2-1.2); Calc. Creatinine Clearance 42 mL/min (70-130); Calcium 8.6 mg/dL (7.8-10.44); Carbon Dioxide 26 mmol/L (23-31); Chloride 107 mmol/L (98-107); Estimated GFR-MDRD 51; Globulin 2.6 g/dL (2.4-3.5); Glucose 96 mg/dL (83-110); Potassium 4.2 mmol/L (3.5-5.1); Sodium 138 mmol/L (136-145)
[2017-09-29] MEDS ORDERED: Clopidogrel Bisulfate 75 MG TAB PO SCH (09:00)
[2017-09-29] MEDS: Furosemide 20 MG TAB PO SCH (09:18)
[2017-09-29] MEDS: Carvedilol 6.25 MG TAB PO SCH (09:18)
[2017-09-29] MEDS: Lisinopril/Hydrochlorothiazide 20/25 mg Tablet PO SCH (09:18)
[2017-09-29] MEDS: Potassium Chloride 10 MEQ TAB PO SCH (09:18)
[2017-09-29 12:18] VITALS: TEMP 97.5
[2017-09-29 14:45] VITALS: BP 111/54
[2017-09-29] MEDS ORDERED: Apixaban 5 MG TAB PO SCH (21:00)
== END 2017-09-29 14:46 | disposition home or self-care (01) | DRG 249 ==
LOC: ERS 16:36 → 2SW 18:33 → OBSVTOIN 09-27 09:14
PROVIDERS: ADMIT Specialist; ATTEND Specialist
PROC: 02703DZ Dilation of Coronary Artery, One Artery with Intraluminal Device, Percutaneous Approach (ICD-10-PCS; principal; 2017-09-28)
PROC: B218YZZ Fluoroscopy of Left Internal Mammary Bypass Graft using Other Contrast (ICD-10-PCS; 2017-09-28)
PROC: B211YZZ Fluoroscopy of Multiple Coronary Arteries using Other Contrast (ICD-10-PCS; 2017-09-28)
DX: I25.10 Atherosclerotic heart disease of native coronary artery without angina pectoris (principal); E78.5 Hyperlipidemia, unspecified; Z95.1 Presence of aortocoronary bypass graft; F41.9 Anxiety disorder, unspecified; G47.00 Insomnia, unspecified; I48.91 Unspecified atrial fibrillation; E11.22 Type 2 diabetes mellitus with diabetic chronic kidney disease; I12.9 Hypertensive chronic kidney disease with stage 1 through stage 4 chronic kidney disease, or unspecified chronic kidney disease; N18.3 Chronic kidney disease, stage 3 (moderate)
CPT/HCPCS: 36415; 36416; 71045; 76942; 80053; 82550; 82553; 83880; 84484; 85025; 85347; 92928; 93005; 93010; 93455; 93798; C1769; C1876; C1887; J0153; J1644; J2001